=== PATIENT | female | born 1940 | race Caucasian/White ===

== ENCOUNTER → 2017-05-18 | Outpatient (CLI) | payer MEDICARE, BC ==
[~2017-05-18] MED LIST: ACIPHEX20 MG PO; ACTIVELLA PO; BENEFIBER; FISH OIL 1000MG1 CAP PO; LOTRIMIN1% TP; METROGEL-VAGINA0.75% TOP; MILK OF MA400 MG/51 PO; NEXIUM 40MG40 MG PO; PERCOCET 325 MG1 TA2 PO; REFRESH 1 ML1 ML OP; TRANXENE7.5 MG PO
== END ==
LOC: MC.RAD 10:08
DX: Z12.31 Encounter for screening mammogram for malignant neoplasm of breast (principal)

== ENCOUNTER → 2017-12-15 | Outpatient (CLI) | payer MEDICARE, BC | LOC: COL.RAD 07:46 | DX: Z01.812 Encounter for preprocedural laboratory examination (principal); N83.8 Other noninflammatory disorders of ovary, fallopian tube and broad ligament; N20.0 Calculus of kidney; K82.8 Other specified diseases of gallbladder; R92.1 Mammographic calcification found on diagnostic imaging of breast; D71 Functional disorders of polymorphonuclear neutrophils; R63.4 Abnormal weight loss | CPT/HCPCS: Q9967 ==

== ENCOUNTER 2018-02-10 13:10 | Day surgery (SDC) | payer MEDICARE, BC ==
[~2018-02-10] VITALS: Ht 149.9 cm; Wt 41.6 kg
[2018-02-10] VITALS (7 sets, daily range): BP systolic 110–147; BP diastolic 56–74; PULSE 63–96; TEMP 98–98.7
[2018-02-10] MEDS ORDERED: TRANXENE7.5 MG PO (14:03)
[2018-02-10] MEDS ORDERED: REFRESH TEARS 330 ML OP (14:05)
[2018-02-10] MEDS ORDERED: VICKS VAPORUB 41 OIN TOP (14:06)
[2018-02-10] MEDS ORDERED: COLACE 100100 MG/CAP PO (14:06)
[2018-02-10] MEDS ORDERED: TUMS500 MG PO (14:07)
[2018-02-10] MEDS ORDERED: BIOTENE DRY M1000 ML PO (14:08)
== END 2018-02-10 17:07 ==
LOC: SDCO 13:10
DX: K57.30 Diverticulosis of large intestine without perforation or abscess without bleeding (principal); K59.09 Other constipation; R93.3 Abnormal findings on diagnostic imaging of other parts of digestive tract; K92.1 Melena; R10.13 Epigastric pain; R63.4 Abnormal weight loss; F41.9 Anxiety disorder, unspecified; K21.9 Gastro-esophageal reflux disease without esophagitis; E78.00 Pure hypercholesterolemia, unspecified; Z88.0 Allergy status to penicillin; Z88.1 Allergy status to other antibiotic agents
CPT/HCPCS: J2250; J2405; J3010; J7030

== ENCOUNTER 2018-04-02 23:40 | Emergency (ER) | payer MEDICARE, BC ==
[~2018-04-02] VITALS: Ht 149.9 cm; Wt 42.7 kg
[~2018-04-02 23:40] MED LIST changes: +BIOTENE DRY M1000 ML PO; +COLACE 100100 MG/CAP PO; +REFRESH TEARS 330 ML OP; +TUMS500 MG PO; +VICKS VAPORUB 41 OIN TOP
[2018-04-02 23:43] VITALS: BP 170/78; TEMP 97.2
[2018-04-03] MEDS ORDERED: NEXIUM 40MG40 MG PO (00:08)
[2018-04-03] MEDS ORDERED: OXY IR5 MG PO (00:10)
[2018-04-03] MEDS ORDERED: OMEGA-3 1000 MG1 CAP PO (00:11)
[2018-04-03] MEDS ORDERED: TUMS500 MG (00:12)
[2018-04-03] MEDS ORDERED: COLACE 100100 MG/CAP PO (00:12)
[2018-04-03 00:51] VITALS: PULSE 79
== END 2018-04-03 00:58 | disposition home or self-care (01) ==
LOC: COL.ER 23:40
DX: R51 Headache (principal); K21.9 Gastro-esophageal reflux disease without esophagitis; E78.5 Hyperlipidemia, unspecified; F41.9 Anxiety disorder, unspecified; Z79.891 Long term (current) use of opiate analgesic

== ENCOUNTER → 2018-05-19 | Outpatient (CLI) | payer MEDICARE, BC ==
[~2018-05-19] MED LIST changes: +OMEGA-3 1000 MG1 CAP PO; +OXY IR5 MG PO; +TUMS500 MG
== END ==
LOC: MC.RAD 09:44
DX: Z12.31 Encounter for screening mammogram for malignant neoplasm of breast (principal)

== ENCOUNTER → 2018-11-02 | Outpatient (CLI) | payer MEDICARE, BC | LOC: COL.RAD 09:15 | DX: D33.3 Benign neoplasm of cranial nerves (principal); G31.9 Degenerative disease of nervous system, unspecified; I67.82 Cerebral ischemia | CPT/HCPCS: A9585 ==

== ENCOUNTER → 2019-05-24 | Outpatient (CLI) | payer MEDICARE, BC | LOC: MC.RAD 08:48 | DX: Z12.31 Encounter for screening mammogram for malignant neoplasm of breast (principal) ==

== ENCOUNTER → 2020-05-26 | Outpatient (CLI) | payer MEDICARE, BC | LOC: MC.RAD 10:51 | DX: Z12.31 Encounter for screening mammogram for malignant neoplasm of breast (principal) ==

== ENCOUNTER 2020-06-08 19:50 | Emergency (ER) | payer MEDICARE, BC ==
[~2020-06-08] VITALS: Ht 149.9 cm; Wt 40.0 kg
[2020-06-08 20:11] VITALS: TEMP 97.3
[2020-06-08] MEDS ORDERED: ATARAX 10MG10 MG/TAB PO (21:07)
[2020-06-08] MEDS ORDERED: ATIVAN 0.50.5 MG/TAB PO (21:28)
[2020-06-08 22:20] VITALS: BP 141/67; PULSE 82
== END 2020-06-08 22:23 | disposition home or self-care (01) ==
LOC: COL.ER 19:50
DX: F19.939 Other psychoactive substance use, unspecified with withdrawal, unspecified (principal); F41.9 Anxiety disorder, unspecified; K21.9 Gastro-esophageal reflux disease without esophagitis; Z88.2 Allergy status to sulfonamides; Z88.1 Allergy status to other antibiotic agents; Z88.8 Allergy status to other drugs, medicaments and biological substances; Z88.6 Allergy status to analgesic agent

== ENCOUNTER 2020-06-14 04:07 | Emergency (ER) | payer MEDICARE, BC ==
[~2020-06-14] VITALS: Ht 149.9 cm; Wt 40.9 kg
[~2020-06-14 04:07] MED LIST changes: +ATARAX 10MG10 MG/TAB PO; +ATIVAN 0.50.5 MG/TAB PO
[2020-06-14 04:21] VITALS: TEMP 97.7
[2020-06-14 06:28] VITALS: BP 140/70; PULSE 89
== END 2020-06-14 06:28 | disposition home or self-care (01) ==
LOC: COL.ER 04:07
DX: F41.9 Anxiety disorder, unspecified (principal); Z88.1 Allergy status to other antibiotic agents; Z88.2 Allergy status to sulfonamides; Z88.3 Allergy status to other anti-infective agents; Z88.5 Allergy status to narcotic agent; Z88.8 Allergy status to other drugs, medicaments and biological substances

== ENCOUNTER → 2021-05-27 | Outpatient (CLI) | payer MEDICARE, BC | LOC: MC.RAD 10:47 | DX: Z12.31 Encounter for screening mammogram for malignant neoplasm of breast (principal) ==

== ENCOUNTER → 2022-12-02 | Outpatient (CLI) | payer MEDICARE, BC | LOC: COL.RAD 11:39 | DX: D33.3 Benign neoplasm of cranial nerves (principal) | CPT/HCPCS: A9575 ==

== ENCOUNTER 2023-10-24 14:23 | Emergency (ER) | payer MEDICARE, BC ==
[~2023-10-24] VITALS: Ht 124.5 cm; Wt 36.8 kg
[~2023-10-24 14:23] MED LIST changes: +ANUSOL-HC2.5% RC; +ARICEPT 5MG PO; +FOSAMAX 35MG35 MG PO; +MYLANTA 150 ML150 M1 PO; +PAXIL 10MG10 MG PO; -REFRESH TEARS 330 ML OP; +REFRESH TEARS 330 ML OU; +REQUIP0.25 MG PO; +SINEMET 25/101 UDTAB PO; +ZESTRIL 5MG5 MG PO
[2023-10-24 14:37] VITALS: TEMP 97.9
[2023-10-24] MEDS ORDERED: Lido/EPI/Tetrac Gel 3 ML SYRINGE TOP ONE (15:15)
[2023-10-24 16:28] VITALS: BP 127/56; PULSE 88
== END 2023-10-24 16:30 | disposition home or self-care (01) ==
LOC: COL.ER 14:23
DX: S09.90XA Unspecified injury of head, initial encounter (principal); S01.01XA Laceration without foreign body of scalp, initial encounter; W18.30XA Fall on same level, unspecified, initial encounter; W22.8XXA Striking against or struck by other objects, initial encounter